=== PATIENT | male | born 1970 | race African-American/Black ===

== ENCOUNTER 2020-03-30 02:37 | Emergency (ER) | payer MEDICAID, OTHER ==
[~2020-03-30] VITALS: Ht 180.3 cm; Wt 85.0 kg
[2020-03-30] MEDS ORDERED: MORPHINE SULFATE 4 MG/ML CPJ (NOT FOR IM USE) IV STA (03:23)
[2020-03-30] MEDS ORDERED: TETANUS, DIPHTHERIA, PERTUSSIS VAC/PF 0.5ML (>7YR OLD) IM ONE (03:30)
[2020-03-30] MEDS ORDERED: CEFAZOLIN 1000MG PREMIX 50 ML IV ONE (03:30)
[2020-03-30 04:28] LABS: CHLORIDE 106 mEq/L (98-107)
[2020-03-30 04:41] LABS: BASOPHILS % 0.6 % (0.0-2.0); EOSINOPHILS % 0.5 % (0.0-5.0); HEMATOCRIT. 43.3 % (42.0-52.0); LYMPHOCYTES % 25.8 % (20.0-50.0); MEAN CORPUSCULAR HEMOGLOBIN 33.5 pg (28.0-32.0); MEAN CORPUSCULAR VOLUME 97.1 fL (80.0-94.0); MEAN PLATELET VOLUME 10.2 fl (7.4-10.4); MONOCYTES % 6.1 % (2.0-8.0); PLATELET 228 x1000/uL (130-400); RED BLOOD CELL COUNT 4.46 mill/uL (4.7-6.1); RED CELL DISTRIBUTION WIDTH 14.3 % (11.6-14.6)
[2020-03-30] MEDS ORDERED: KETOROLAC 30MG/ML VIAL IV STA (04:50)
[2020-03-30] MEDS ORDERED: SODIUM CHLORIDE 0.9% 1,000 ML IV ONE (04:50)
[2020-03-30 04:53] LABS: PROTHROMBIN TIME 10.3 sec (9.6-11.0)
[2020-03-30] MEDS ORDERED: VANCOMYCIN 1 G PREMIX 200 ML IV ONE (05:00)
[2020-03-30] MEDS ORDERED: PIPERACILLIN/TAZ 3.375G PREMIX 50 ML IV ONE (05:00)
[2020-03-30 07:06] VITALS: BP 112/71
== END 2020-03-30 07:10 | disposition short-term general hospital (02) ==
LOC: ER 02:37
DX: S72.92XA Unspecified fracture of left femur, initial encounter for closed fracture (principal); S01.111A Laceration without foreign body of right eyelid and periocular area, initial encounter; V49.40XA Driver injured in collision with unspecified motor vehicles in traffic accident, initial encounter; Y93.89 Activity, other specified; Y92.89 Other specified places as the place of occurrence of the external cause; Y99.8 Other external cause status
CPT/HCPCS: 36415; 70450; 70486; 72125; 73552; 73590; 80053; 80320; 85025; 85610; 90471; 90715; 93005; 96365; 96375; 99285; J0690; J2270; J7030; G0480

== ENCOUNTER 2022-03-05 20:36 | Emergency (ER) | payer MEDICAID ==
[~2022-03-05] VITALS: Ht 180.3 cm; Wt 86.6 kg
[2022-03-06] MEDS ORDERED: IBUPROFEN 400MG TABLET PO ONE (00:15)
[2022-03-06] MEDS ORDERED: IBUP-2028 MT (01:44)
[2022-03-06 02:27] VITALS: BP 145/90
== END 2022-03-06 02:29 | disposition home or self-care (01) ==
LOC: ER 20:36
DX: M25.532 Pain in left wrist (principal); M79.89 Other specified soft tissue disorders; M79.672 Pain in left foot; G89.11 Acute pain due to trauma; W20.8XXA Other cause of strike by thrown, projected or falling object, initial encounter; Y93.89 Activity, other specified; Y92.89 Other specified places as the place of occurrence of the external cause; Y99.0 Civilian activity done for income or pay
CPT/HCPCS: 29125; 73110; 73130; 73630; 99284